=== PATIENT | female | born 1985 | race Caucasian/White ===

== ENCOUNTER 2019-06-15 06:55 | Outpatient (CLI) | payer OTHER, SELFPAY ==
--- NOTE | 2019-06-15 07:08 | US_ITS ---
WS: [id number] Complete ABDOMINAL ULTRASOUND HISTORY: EPIGASTRIC PAIN COMPARISON: None available. Liver: 12.2 cm in length. Liver is normal size and echogenicity with no mass or intrahepatic dilatation. Gallbladder: Prior cholecystectomy. Pancreas: Poorly visualized. CBD: 3.9 mm. Right kidney: 9.6 cm x 5.8 cm x 4.0 cm. No mass, cortical thickening or hydronephrosis. Left kidney: 10.3 cm x 4.7 cm x 5.0 cm. Cortical cyst upper pole with a maximum diameter of 1.6 cm. Spleen: Normal size and echogenicity. Abdominal aorta and IVC are within normal limits. No ascites. NOTE: Report was unsigned for reason: Ordering provider was edited. Original Signature date and time was: 06/15/19 0850 [facility] US/US abdomen complete* [id number] IMPRESSION: 1. Prior cholecystectomy. 2. Pancreas not well visualized. 3. No acute abdominal abnormalities.
== END 2019-06-15 06:56 | disposition home or self-care (01) ==
LOC: RAD 07:02
PROVIDERS: Family Provider Family Medicine; PCP Family Medicine
DX: R10.13 Epigastric pain (principal); Z90.49 Acquired absence of other specified parts of digestive tract
CPT/HCPCS: 76700

== ENCOUNTER 2019-06-28 08:33 | Emergency (ER) | payer SELFPAY ==
[2019-06-28 08:37] VITALS: BP 125/69; PULSE 71; RESP 16; TEMP 36.4; O2SAT 99; BMI 25.6
--- NOTE | 2019-06-28 08:43 | ED_ITS ---
Entered by Joshua Aguirre, acting as scribe for HPI - Chest Pain General: Chief Complaint: Chest Pain Stated Complaint: cp/abd pain Time Seen by Provider: 06/28/19 08:42 History of Present Illness: HPI narrative: 34 yo female presents with chest pa in. Pt states that she has had this chest pain for 2 weeks. Pt states that she has some shortness of breath. Pt states that when she takes a deep breath her chest pain worsens. Pt states that her pain is worsened the center of her chest is palpated. MD complaint: chest pain Associated symptoms: Reports abdominal pain; Deny dyspnea, fever(s), nausea, palpitations, syncope or vomiting Review of Systems Const: Denies: fever, chills, body aches, fatigue, malaise or night sweats Eyes: Denies: change in vision or blurry vision ENMT: Denies: throat pain, oral sores/lesions, dental pain, nasal discharge or nasal congestion Card: Denies: chest pain, palpitations, irregular heart rhythm, edema, syncope, shortness of breath on exertion, shortness of breath when lying down or leg pain with exertion Resp: Denies: shortness of breath, productive cough, non-productive cough or wheezing GI: Reports: abdominal pain; Denies: nausea, vomiting, vomiting blood, coffee grounds in vomit, difficulty swallowing, heartburn/indigestion, diarrhea, constipation, cramping, blood in stool or black tarry stool : Denies: flank pain, painful urination, urinary frequency, urinary urgency, urinary incontinence or blood in urine Musc: Denies: neck pain, back pain, extremity pain, extremity swelling, joint pain or joint swelling Skin/Breast: Denies: rash, itching or redness Neuro: Denies: headache, numbness in extremities, weakness in extremities, changes in sensation, lack of coordination, difficulty walking, frequent falls, dizziness, vertigo or confusion Psych: Denies: anxiety, depression, loss of interest, visual hallucinations, auditory hallucinations, suicidal ideation or homicidal ideation Endo: Denies: excessive urination, excessive thirst, tired all the time or cold intolerance Kevin/Lymph: Denies: easy bruising, easy bleeding, petechiae, enlarged lymph nodes or tender lymph nodes PFSH ED PFSH: Statuses (acute, chronic, etc) shown below reflect problem list status as previously entered and may not be historically accurate Medical History Gallstones (Acute) Ovarian cyst (Acute) Surgical History History of cholecystectomy (Acute) Social History Smoking and tobacco status: former smoker Physical Exam Const: COMMON NORMALS: average body habitus, oriented x3 and alert GENERAL APPEARANCE: cooperative, comfortable, well kempt and well developed NUTRITIONAL APPEARANCE: not obese ORIENTATION/CONSCIOUSNESS: Yes awake, Yes oriented to person and Yes oriented to place HENMT: COMMON NORMALS: normocephalic, head/scalp atraumatic, EAC's normal, TM's normal bilaterally, external nose normal, moist oral mucous membranes and oropharynx normal HEAD & SCALP: normocephalic and atraumatic 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 EXTERNAL AUDITORY CANAL: EAC's normal TYMPANIC MEMBRANE: TM's normal bilaterally MOUTH: oral and palatal mucosa normal, lip normal and tongue normal THROAT: posterior oropharynx normal and tonsils normal Eye: COMMON NORMALS: PERRL, EOMs intact bilaterally, conjunctivae normal and no scleral icterus CONJUNCTIVA: Yes conjunctivae normal PUPIL: Yes PERRL Neck/C-Spine: COMMON NORMALS: full ROM, no lymphadenopathy, supple, no meningeal signs and thyroid normal THYROID: thyroid normal and asymmetrical Lymph: LYMPHATIC: no lymphadenopathy noted Resp: COMMON NORMALS: normal respiratory effort, no retractions, no use of accessory muscles and clear to auscultation bilaterally AUSCULTATION: clear to auscultation bilaterally Cardio: COMMON NORMALS: regular rate and regular rhythm RATE: regular rate RHYTHM: regular rhythm HEART SOUNDS: no murmurs GI: COMMON NORMALS: normal to inspection, nondistended, normoactive bowel sounds, soft to palpation and no hepatosplenomegaly PALPATION: Yes soft and Yes no hepatosplenomegaly : COMMON NORMALS: Yes no CVA tenderness BLADDER/KIDNEY EXAM: Yes no CVA tenderness Back/Pelvis: COMMON NORMALS: no CVA tenderness LUMBAR SPINE/LOWER BACK: Yes normal to inspection Extremity: COMMON NORMALS: no clubbing, cyanosis or edema, no calf tenderness and no pedal edema Neuro: COMMON NORMALS: oriented x3 SENSORIUM/ORIENTATION: Yes alert, Yes oriented to person and Yes oriented to place MENINGEAL SIGNS: Yes no meningeal signs Psych: APPEARANCE: Yes well kempt Skin: COMMON NORMALS: no rashes or lesions noted and skin turgor normal GENERAL SKIN EXAM: no rashes or lesions noted and turgor normal Course Vital Signs: Vital signs: Vital Signs Temperature 97.5 F L 06/28/19 08:37 Pulse Rate 63 06/28/19 11:22 Respiratory Rate 16 06/28/19 11:22 Blood Pressure 103/68 06/28/19 11:22 Pulse Oximetry 100 06/28/19 11:22 MDM - Chest Pain Lab Data: Labs: Lab Results 06/28/19 06/28/19 06/28/19 Range/Units 08:47 08:47 08:47 WBC 5.9 (4.0-10.0) 10^3/ uL RBC 4.62 (4.1-5.3) 10^6/u L Hgb 12.8 (11.5-15.3) g/dL Hct 40.0 (37.0-47.0) % MCV 86.6 (81-99) fL MCH 27.7 L (28.0-34.0) pg MCHC 32.0 (30.0-36.0) g/dL RDW 12.7 (12.1-15.1) % Plt Count 296 (130-400) 10^3/c mm MPV 8.8 (7.4-10.4) fL Neut % (Auto) 67.0 % Lymph % (Auto) 25.2 % Duc[place]ne % (Auto) 5.6 % Eos % (Auto) 1.5 % Baso % (Auto) 0.5 % Neut # (Auto) 3.9 (1.8-7.7) 10^3/u L Lymph # (Auto) 1.5 (0.8-4.8) 10^3/u L [place]ne # (Auto) 0.3 (0.2-0.9) 10^3/u L Eos # (Auto) 0.1 (0.0-0.8) 10^3/u L Baso # (Auto) 0.0 (0.0-0.1) 10^3/u L Nucleated RBC % (a uto) 0 % Nucleated RBCs # 0.0 /100WBC PT 12.60 (10.5-13.3) SECO NDS INR 0.92 (0.8-1.2) APTT 26.4 (23.9-36.7) SECO NDS Sodium 139 (136-145) mmol/L Potassium 3.9 (3.5-5.1) mmol/L Chloride 103 (98-107) mmol/L Carbon Dioxide 26 (22-29) mmol/L Anion Gap 13.9 (5-19) BUN 12 (6-20) mg/dL Creatinine 0.8 (0.5-0.9) mg/dL GFR Calculation 81.2 L (90-130) mL/min Glucose 104 (74-109) mg/dL Calcium 9.5 (8.6-10.0) mg/Dl Troponin T Baselin e (0-10) ng/mL Troponin T 120 Min quileute (0-10) ng/mL Delta Troponin T (0-10) ABS# Lipase (13-60) U/L Urine Color (Yellow) Urine Appearance (CLEAR) Urine pH (5-7) Ur Specific Gravit y (1.005-1.030) Urine Protein (Negative) Urine Glucose (UA) (Normal) Urine Ketones (Negative) Urine Occult Blood (Negative) Urine Nitrate (Negative) Urine Bilirubin (NEGATIVE) Urine Urobilinogen (Negative) mg/dL Ur Leukocyte Dawna ase (Negative) Urine RBC (0-2) /hpf Urine WBC (0-5) /hpf Ur Squamous Epith Cells (0-5) Urine Bacteria (NONE) Urine Mucus Urine HCG, Qual (Negative) 06/28/19 06/28/19 06/28/19 Range/Units 08:47 08:47 08:47 WBC (4.0-10.0) 10^3/ uL RBC (4.1-5.3) 10^6/u L Hgb (11.5-15.3) g/dL Hct (37.0-47.0) % MCV (81-99) fL MCH (28.0-34.0) pg MCHC (30.0-36.0) g/dL RDW (12.1-15.1) % Plt Count (130-400) 10^3/c mm MPV (7.4-10.4) fL Neut % (Auto) % Lymph % (Auto) % Duc[place]ne % (Auto) % Eos % (Auto) % Baso % (Auto) % Neut # (Auto) (1.8-7.7) 10^3/u L Lymph # (Auto) (0.8-4.8) 10^3/u L Duc[place]ne # (Auto) (0.2-0.9) 10^3/u L Eos # (Auto) (0.0-0.8) 10^3/u L Baso # (Auto) (0.0-0.1) 10^3/u L Nucleated RBC % (a uto) % Nucleated RBCs # /100WBC PT (10.5-13.3) SECO NDS INR (0.8-1.2) APTT (23.9-36.7) SECO NDS Sodium (136-145) mmol/L Potassium (3.5-5.1) mmol/L Chloride (98-107) mmol/L Carbon Dioxide (22-29) mmol/L Anion Gap (5-19) BUN (6-20) mg/dL Creatinine (0.5-0.9) mg/dL GFR Calculation (90-130) mL/min Glucose (74-109) mg/dL Calcium (8.6-10.0) mg/Dl Troponin T Baselin e 6 (0-10) ng/mL Troponin T 120 Min qu[place] (0-10) ng/mL Delta Troponin T (0-10) ABS# Lipase 28 (13-60) U/L Urine Color (Yellow) Urine Appearance (CLEAR) Urine pH (5-7) Ur Specific Gravit y (1.005-1.030) Urine Protein (Negative) Urine Glucose (UA) (Normal) Urine Ketones (Negative) Urine Occult Blood (Negative) Urine Nitrate (Negative) Urine Bilirubin (NEGATIVE) Urine Urobilinogen (Negative) mg/dL Ur Leukocyte Dawna ase (Negative) Urine RBC (0-2) /hpf Urine WBC (0-5) /hpf Ur Squamous Epith Cells (0-5) Urine Bacteria (NONE) Urine Mucus Urine HCG, Qual Negative (Negative) 06/28/19 06/28/19 Range/Units 08:47 10:44 WBC (4.0-10.0) 10^3/ uL RBC (4.1-5.3) 10^6/u L Hgb (11.5-15.3) g/dL Hct (37.0-47.0) % MCV (81-99) fL MCH (28.0-34.0) pg MCHC (30.0-36.0) g/dL RDW (12.1-15.1) % Plt Count (130-400) 10^3/c mm MPV (7.4-10.4) fL Neut % (Auto) % Lymph % (Auto) % Duc[place]ne % (Auto) % Eos % (Auto) % Baso % (Auto) % Neut # (Auto) (1.8-7.7) 10^3/u L Lymph # (Auto) (0.8-4.8) 10^3/u L Duc[place]ne # (Auto) (0.2-0.9) 10^3/u L Eos # (Auto) (0.0-0.8) 10^3/u L Baso # (Auto) (0.0-0.1) 10^3/u L Nucleated RBC % (a uto) % Nucleated RBCs # /100WBC PT (10.5-13.3) SECO NDS INR (0.8-1.2) APTT (23.9-36.7) SECO NDS Sodium (136-145) mmol/L Potassium (3.5-5.1) mmol/L Chloride (98-107) mmol/L Carbon Dioxide (22-29) mmol/L Anion Gap (5-19) BUN (6-20) mg/dL Creatinine (0.5-0.9) mg/dL GFR Calculation (90-130) mL/min Glucose (74-109) mg/dL Calcium (8.6-10.0) mg/Dl Troponin T Baselin e (0-10) ng/mL Troponin T 120 Min qu[place] 6.00 (0-10) ng/mL Delta Troponin T 0 (0-10) ABS# Lipase (13-60) U/L Urine Color Yellow (Yellow) Urine Appearance Clear (CLEAR) Urine pH 6.5 (5-7) Ur Specific Gravit y 1.005 (1.005-1.030) Urine Protein Neg (Negative) Urine Glucose (UA) Norm (Normal) Urine Ketones Negative (Negative) Urine Occult Blood Trace H (Negative) Urine Nitrate Negative (Negative) Urine Bilirubin Neg (NEGATIVE) Urine Urobilinogen Norm (Negative) mg/dL Ur Leukocyte Dawna ase Negative (Negative) Urine RBC Rare (0-2) /hpf Urine WBC None (0-5) /hpf Ur Squamous Epith Cells 0-4 H (0-5) Urine Bacteria Trace (NONE) Urine Mucus Trace Urine HCG, Qual (Negative) Discharge Plan Discharge Patient Disposition: Home, Self-Care Clinical Impression: Atypical chest pain, Chest pain due to GERD Condition: Stable Prescriptions: New omeprazole 20 mg capsule,delayed release(DR/EC) 20 mg PO DAILY 30 Days Qty: 60 RF: 0 No Action bupropion HCl 150 mg tablet sustained-release 12 hr 150 mg PO BID RF: 0 hydroxyzine HCl 25 mg tablet 25 mg PO TID PRN (Reason: Anxiety) RF: 0 Discharge Orders: Discharge Order (Routine); Ordered 06/28/19 Ordered By: Martín May Referrals: Gill Carnes MD [Family Provider] - Alex Dunlap MD [Primary Care Provider] - Discharge Diet: Advance as tolerated Discharge Activity: Increase activity as tolerated Discharge Date/Time: 06/28/19 11:25 Coding Level of Care Code ED 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
[2019-06-28 08:50] VITALS: PULSE 69; RESP 18; O2SAT 100
--- NOTE | 2019-06-28 08:50 | ECG_ITS ---
Measurements Intervals [place] Rate: 70 P: 27 [place]: 152 QRS: 6 QRSD: 79 T: 6 QT: 364 QTc: 393 SINUS RHYTHM No previous ECG available for comparison Electronically Signed On 06-28-2019 17:21:37 RESIN REMOVER by Óscar Miller M.D. [email or web address]
--- NOTE | 2019-06-28 08:50 | XR_ITS ---
WS: [id number] CHEST XRAY TECHNIQUE: Portable chest. CLINICAL INFORMATION: chest pain COMPARISON: None. FINDINGS: Heart: Normal cardiac silhouette. Lungs: Lungs are clear. No consolidation or pleural effusion. Bones: Normal visualized bony structures. XR/XR chest 1V portable [id number] IMPRESSION: Normal chest
[2019-06-28 08:58] LABS: Basophils % 0.5 %; Eosinophils # 0.1 10^3/uL (0.0-0.8); Eosinophils % 1.5 %; Hemoglobin 12.8 g/dL (11.5-15.3); Lymphocytes # 1.5 10^3/uL (0.8-4.8); Lymphocytes % 25.2 %; Mean Corpuscular Hemoglobin 27.7 pg (28.0-34.0); Mean Corpuscular Volume 86.6 fL (81-99); Mean Platelet Volume 8.8 fL (7.4-10.4); Monocytes # 0.3 10^3/uL (0.2-0.9); Monocytes % 5.6 %; Neutrophils # 3.9 10^3/uL (1.8-7.7); Nucleated Red Blood Cells % 0 %; Platelet Count 296 10^3/cmm (130-400); Red Blood Count 4.62 10^6/uL (4.1-5.3); Red Cell Distribution Width 12.7 % (12.1-15.1); White Blood Count 5.9 10^3/uL (4.0-10.0)
[2019-06-28 09:00] VITALS: BP 116/72; PULSE 65; RESP 16; O2SAT 100
[2019-06-28 09:05] LABS: INR 0.92 (0.8-1.2)
[2019-06-28 09:06] LABS: Partial Thromboplastin Time 26.4 SECONDS (23.9-36.7)
[2019-06-28 09:12] LABS: Add Urine Microscopic? YES; Bilirubin Urine Neg (NEGATIVE); Blood Urine Trace (Negative); Glucose Urine UA Norm (Normal); Ketones Urine Negative (Negative); Leukocyte Esterase Urine Negative (Negative); Nitrate Urine Negative (Negative); Protein Urine Neg (Negative); Specific Gravity, Urine 1.005 (1.005-1.030); Urine Appearance Clear (CLEAR); Urine Color Yellow (Yellow); Urobilinogen Urine Norm (Negative); pH Urine 6.5 (5-7)
[2019-06-28 09:13] LABS: Troponin(5th) Baseline 6 ng/mL (0-10)
[2019-06-28 09:23] LABS: Add Urine Culture? No; Bacteria Urine TRACE; Mucus Urine TRACE; RBC Urine RARE /hpf (0-2); Squamous Epithelial Cell Urine 0-4 (0-5)
[2019-06-28 09:38] LABS: Anion Gap 13.9 (5-19); Blood Urea Nitrogen 12 mg/dL (6-20); Calcium 9.5 mg/Dl (8.6-10.0); Carbon Dioxide 26 mmol/L (22-29); Chloride 103 mmol/L (98-107); Glomerular Filtration Rate 81.2 mL/min (90-130); Glucose 104 mg/dL (74-109); Potassium 3.9 mmol/L (3.5-5.1); Sodium 139 mmol/L (136-145)
[2019-06-28 09:42] LABS: Lipase 28 U/L (13-60)
[2019-06-28 10:00] VITALS: BP 109/60; PULSE 67; RESP 19; O2SAT 100
--- NOTE | 2019-06-28 10:50 | ECG_ITS ---
Measurements Intervals [place] Rate: 60 P: [place]: 0 QRS: 8 QRSD: 84 T: 2 QT: 374 QTc: 375 Sinus rhythm No previous ECG available for comparison Electronically Signed On 06-28-2019 17:28:41 HYDROELECTRIC OPERATOR by Óscar Miller M.D. [email or web address]
[2019-06-28 11:03] LABS: Troponin 5 2HR Delta 0 ABS# (0-10)
[2019-06-28 11:22] VITALS: BP 103/68; PULSE 63; RESP 16; O2SAT 100
== END 2019-06-28 11:25 | disposition home or self-care (01) ==
PROVIDERS: Emergency Provider Family Medicine; Family Provider Family Medicine; PCP Family Medicine
DX: R07.89 Other chest pain (principal); K21.9 Gastro-esophageal reflux disease without esophagitis; Z87.891 Personal history of nicotine dependence
CPT/HCPCS: 36415; 71045; 80048; 81003; 81025; 83690; 84484; 85025; 85610; 85730; 93005; 99282; A9270